=== PATIENT | male | born 1980 | race Hispanic/Latino ===

== ENCOUNTER 2021-11-05 18:16 | Emergency (ER) | payer SELFPAY ==
[2021-11-05 18:22] VITALS: BP 137/93; PULSE 90; RESP 18; TEMP 36.6; O2SAT 100
--- NOTE | 2021-11-05 18:52 | PC.NURSE ---
Patient with dry skin in between fingers and posterior neck. Patient has redness in groin skin folds.
--- NOTE | 2021-11-05 19:01 | ED.SKABFB ---
HPI - Skin/Abscess/Foreign Bdy General Chief complaint: Skin/Abscess/Foreign Body Stated complaint: dry skin around my penis Time Seen by Provider: 11/05/21 18:26 Source: patient Mode of arrival: ambulatory Limitations: no limitations History of Present Illness HPI narrative: This is a 41-year-old male that presents to the emergency department for an itchy rash noted over the last week. Reports an itchy, dry rash to the groin. He has not been using any [id number] creams for this. Denies fevers. Review of Systems Review of Systems: CONSTITUTIONAL: Denies fever SKIN: Reports rash and itching. All systems reviewed & are unremarkable except as noted in HPI and below PMFSH Past Medical History Medical History (Updated 11/05/21 @ 19:07 by Anahi Mojica PA-C) No active medical problems Social History Social History (Updated 11/05/21 @ 19:03 by Anahi Mojica PA-C) Smoking status: Never smoker Exam Narrative: GENERAL: Well-appearing, well-nourished, and in no acute distress. HEAD: Normocephalic, atraumatic. EYES: EOMI. EXTREMITIES: Normal range of motion. No edema. SKIN: Warm, dry. Red/brown patches noted in the groin bilaterally NEURO: No focal deficits. Alert and oriented x3. PSYCH: Normal mood and affect Course Vital Signs Vital signs: Vital Signs Temperature 97.8 F 11/05/21 18:22 Pulse Rate 90 11/05/21 18:22 Respiratory Rate 18 11/05/21 18:22 Blood Pressure 137/93 H 11/05/21 18:22 Pulse Oximetry 100 11/05/21 18:22 Temperature 97.8 F 11/05/21 18:22 Pulse Rate 90 11/05/21 18:22 Respiratory Rate 18 11/05/21 18:22 Blood Pressure 137/93 H 11/05/21 18:22 Pulse Oximetry 100 11/05/21 18:22 MDM - Skin/Abscess/Foreign Bdy MDM Narrative Medical decision making narrative: Patient presents to the ER for an itchy rash noted over the last week. Exam is consistent with tinea cruris. Will be started on topical clotrimazole. He is to follow-up with primary care doctor. He was given warnings to return to the ER Critical Care Time Critical Care Time Critical Care Time: No Discharge Plan Discharge Clinical Impression: Tinea cruris Patient Disposition: Home, Self-Care Condition: Stable Instructions: Pino Albright (ED) Additional Instructions: Return to the emergency department if you experience fevers, redness and swelling, pain or burning with urination, or any other symptoms that are concerning. Apply clotrimazole to the groin twice daily Follow-up with primary care doctor Prescriptions: New clotrimazole 1 % cream 1 applic topical BID 14 Days Qty: 45 0RF Follow-up/Referrals: Guy Hood DO [Physician] - 1 Week PHYSICIAN,LATIN PROFESSOR [Primary Care Provider] -
== END 2021-11-05 19:30 | disposition home or self-care (01) ==
PROVIDERS: Emergency Provider Preventive Medicine Aerospace Medicine
DX: B35.6 Tinea cruris (principal)
CPT/HCPCS: 99283